=== PATIENT | female | born 1980 | race Asian ===

== ENCOUNTER 2018-08-21 18:02 | Emergency (ER) | payer SELFPAY ==
[~2018-08-21] VITALS: Ht 167.6 cm; Wt 52.0 kg
[2018-08-21] MEDS ORDERED: LORAZEPAM 1MG TABLET PO ONE (19:15)
[2018-08-21] MEDS ORDERED: ONDANSETRON 4MG ODT PO ONE (20:15)
[2018-08-21 23:28] VITALS: BP 126/78
== END 2018-08-21 23:30 | disposition home or self-care (01) ==
LOC: ER 18:02
DX: F14.10 Cocaine abuse, uncomplicated (principal); F16.10 Hallucinogen abuse, uncomplicated; F41.1 Generalized anxiety disorder
CPT/HCPCS: 81025; 93005; 99283; Q0162